=== PATIENT | female | born 1935 | race Caucasian/White ===

== ENCOUNTER 2017-05-04 12:07 | Emergency (ER) | payer MEDICARE, BC ==
[2017-05-04 12:37] VITALS: BP 150/27
--- NOTE | 2017-05-04 14:38 | UC ---
Respiratory Complaint HPI - HPI Summary HPI Summary: ONE WEEK AGO SORE THROAT AND COUGH. ST RESOLVED, COUGH NONPRODUCTIVE CONTINUES - History of Current Complaint Chief Complaint: UCRespiratory Stated Complaint: COUGH Time Seen by Provider: 05/04/17 12:56 Hx Obtained From: Patient Onset/Duration: Gradual Onset, Lasting Weeks, Still Present Timing: Intermittent Episodes Severity Initially: Moderate Severity Currently: Moderate Pain Intensity: 0 Pain Scale Used: 0-10 Numeric Character: Cough: Nonproductive Associated Signs And Symptoms: Positive: Negative - Risk Factors Pulmonary Embolism Risk Factors: Negative Cardiac Risk Factors: Negative Pseudomonas Risk Factors: Negative Tuberculosis Risk Factors: Negative - Allergies/Home Medications Allergies/Adverse Reactions: Allergies Allergy/AdvReac Type Severity Reaction Status Date / Time Penicillins [PCN] Allergy Anaphylatic Verified 05/04/17 12:34 Shock Home Medications: Home Medications Amlodipine Besylate-Valsartan [Amlodipine Besylate/Valsa 10-320 mg-] 1 tab PO DAILY 05/04/17 [History Confirmed 05/04/17] Metoprolol Succinate XL TAB* [Toprol XL TAB*] 50 mg PO BID 05/04/17 [History Confirmed 05/04/17] Rosuvastatin Calcium [Crestor] 20 mg PO DAILY 05/04/17 [History Confirmed ] PMH/Surg Hx/FS Hx/Imm Hx Previously Healthy: Yes - Surgical History Surgical History: Yes Surgery Procedure, Year, and Place: Bilateral Cataract Extrations - Family History Known Family History: Negative: Respiratory Disease - Social History Occupation: Employed Full-time Lives: With Family Alcohol Use: None Substance Use Type: None Smoking Status (MU): Never Smoked Tobacco Review of Systems Constitutional: Negative Skin: Negative Eyes: Negative ENT: Nasal Discharge, Sinus Congestion Respiratory: Cough Cardiovascular: Negative Gastrointestinal: Negative Genitourinary: Negative Motor: Negative Neurovascular: Negative Musculoskeletal: Negative Neurological: Negative Psychological: Negative All Other Systems Reviewed And Are Negative: Yes Physical Exam Triage Information Reviewed: Yes Appearance: Well-Appearing, No Pain Distress, Well-Nourished Vital Signs: Initial Vital Signs Temp 98.2 F 05/04/17 12:27 Pulse 83 05/04/17 12:27 Resp 18 05/04/17 12:27 BP 150/27 05/04/17 12:27 Pulse Ox 99 05/04/17 12:27 Vital Signs Reviewed: Yes Eye Exam: Normal ENT: Positive: Hearing grossly normal, Pharynx normal, Nasal congestion, TM dull Dental Exam: Normal Neck exam: Normal Neck: Positive: Supple, Nontender Respiratory Exam: Normal Respiratory: Positive: Chest non-tender, Lungs clear, Normal breath sounds Cardiovascular Exam: Normal Cardiovascular: Positive: RRR, No Murmur, Pulses Normal Abdominal Exam: Normal Musculoskeletal Exam: Normal Musculoskeletal: Positive: Strength Intact, ROM Intact Neurological Exam: Normal Psychological Exam: Normal Skin Exam: Normal UC Diagnostic Evaluation - Laboratory O2 Sat by Pulse Oximetry: 99 Respiratory Course/Dx - Differential Dx/Diagnosis Differential Diagnosis/HQI/PQRI: Bronchitis, Sinusitis Provider Diagnoses: SINUSITIS; BRONCHITIS Discharge - Discharge Plan Condition: Stable Disposition: HOME Prescriptions: Azithromycin TAB* [Zithromax TAB (Z-ESVIN) 250 mg #6 tabs] 250 mg PO DAILY #6 tab Benzonatate CAP* [Tessalon 100 MG CAP*] 100 mg PO TID PRN #15 cap PRN Reason: Cough Patient Education Materials: Acute Bronchitis (ED) Referrals: Almita Crane [Primary Care Provider] -
== END 2017-05-04 13:16 | disposition home or self-care (01) ==
LOC: UCCORT 12:07
DX: J32.9 Chronic sinusitis, unspecified (principal); J40 Bronchitis, not specified as acute or chronic; Z88.0 Allergy status to penicillin
CPT/HCPCS: 99212; G0463

== ENCOUNTER 2018-12-23 18:30 | Emergency (ER) | payer MEDICARE, BC ==
[2018-12-23 19:29] VITALS: BP 167/71
--- NOTE | 2018-12-23 19:34 | UC ---
General HPI - HPI Summary HPI Summary: ON 12/19/18, PT MISSED HER TOP STEP AND FELL INTO HER GARAGE. SHE HIT HER R FOREHEAD AND R SIDE. SHE HAD NO LOC, NECK OR BACK PAIN. HER FAMILY ASSISTED HER TO HER FEET. A SHORT TIME LATER, SHE NOTED HER R UPPER THIGH AND R SIDE OF CHEST WAS SORE. THE THIGH IS BETTER BUT SHE HAS ONGOING PAIN IN HER R SIDE OF CHEST WITH MOVEMENT, STANDING AND PUSHING OFF WITH HER ARMS. SHE IS TAKING TYLENOL WITHOUT RELIEF. SHE HAS NO COUGH OR SOB. SHE HAS NO HEADACHE OR ACUTE CONFUSION. SHE HAS NO NUMBNESS OR WEAKNESS TO HER ARMS OR LEGS. SHE HAS LEFT OVER TYLENOL # 3 WHICH SHE HAS TAKEN AND TOLERATED IN THE PAST. 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 Associated Signs & Symptoms: Negative: Hemoptysis, SOB - Allergy/Home Medications Allergies/Adverse Reactions: Allergies Allergy/AdvReac Type Severity Reaction Status Date / Time Penicillins Allergy Anaphylatic Verified 12/23/18 19:17 Shock Home Medications: Home Medications Acetaminophen [Extra Strength Non-Aspirin] 1,000 mg PO Q6H PRN 12/23/18 [ History Confirmed 12/23/18] Donepezil TAB* [Aricept 5 MG TAB*] 5 mg PO DAILY 12/23/18 [History Confirmed 06/04] Triamcinolone 0.1% Oint (NF) [Triamcinolone Acetonide] 1 udc TOPICAL DAILY 12/23 [History Confirmed 12/23/18] hydrOXYzine HCL TAB* [Atarax 25 MG TAB*] 25 mg PO BEDTIME PRN 12/23/18 [History Confirmed 12/23/18] PMH/Surg Hx/FS Hx/Imm Hx - Additional Past Medical History Additional PMH: DEMENTIA(very mild), MENIERE'S CAUSING UNSTEADY GAIT. Endocrine History: Dyslipidemia Cardiovascular History: Hypertension - Surgical History Surgical History: Yes Surgery Procedure, Year, and Place: Bilateral Cataract Extrations - Family History Known Family History: Negative: Respiratory Disease - Social History Alcohol Use: None Substance Use Type: None Smoking Status (MU): Never Smoked Tobacco Review of Systems All Other Systems Reviewed And Are Negative: Yes Constitutional: Negative: Fever Eyes: Negative: Blurred Vision, Diplopia Respiratory: Positive: Other - R CHEST WALL PAIN. Negative: Shortness Of Breath , Cough Cardiovascular: Negative: Chest Pain Gastrointestinal: Negative: Abdominal Pain Neurological: Negative: Headache, Weakness, Paresthesia, Numbness Physical Exam Triage Information Reviewed: Yes Appearance: Well-Appearing Vital Signs Reviewed: Yes Eyes: Positive: Conjunctiva Clear, Other: - EOMI ENT: Positive: Pharynx normal, TMs normal. Negative: Nasal congestion, Nasal drainage Neck: Positive: Supple, Nontender, No Lymphadenopathy, Other: - C-SPINE IS NON TENDER. Respiratory: Positive: Lungs clear, Normal breath sounds, No respiratory distress, Other: - R MIDAXILLARY CHEST WALL TENDERNESS BUT NO DEFORMITY OR BRUISING Cardiovascular: Positive: RRR, No Murmur Abdomen Description: Positive: Nontender, No Organomegaly, Soft. Negative: Distended, Guarding Bowel Sounds: Positive: Present Musculoskeletal: Positive: Other: - BACK, PELVIS, BUE'S AND BLE'S ARE WITHOUT DEFORMITY OR TENDERNESS. AND HAVE GROSS S/V/M FUNCTION. HEAD HAS A YELLOW BRUISE TO R FOREHEAD BUT NO TENDERNESS OR INSTABILITY. Neurological: Positive: Other: - A&OX3. CN GROSSLY INTACT. SLOW BUT STEADY GAIT. Psychological: Positive: Normal Response To Family, Age Appropriate Behavior Skin Exam: Normal Diagnostics - Radiology No standard instances Radiology Interpretation Completed By: ED Physician - CXR=NO FX, PTX. ATX ON L. Course/Dx - Differential Dx - Multi-Symptom Differential Diagnoses: Other - NO CONCERN FOR ACUTE INTRACRANIAL PATHOLOGY. NO FX OR PTX ON CXR. ATX ON L. WILL WRITE FOR A WALKER GIVEN CHRONIC GAIT DISTURBANCE ISSUES - Diagnoses Provider Diagnosis: Contusion of head, Chest wall injury, Gait disturbance Discharge - Sign-Out/Discharge Documenting (check all that apply): Patient Departure All imaging exams completed and their final reports reviewed: No - Discharge Plan Condition: Stable Disposition: HOME Patient Education Materials: Head Injury (ED), Chest Wall Pain (ED) Referrals: Nancy Maravilla PA [Primary Care Provider] - 3 Days Additional Instructions: YOU MAY TAKE YOUR LEFT OVER TYLENOL WITH CODEINE DIRECTED FOR PAIN BUT NOT UNTIL THE AM. GO TO THE ER FOR ANY CHANGES OR WORSENING. - Billing Disposition and Condition Condition: STABLE Disposition: Home - Attestation Statements Provider Attestation: Per institutional requirements, I have reviewed the chart, however, I was not consulted specifically or made aware of this patient by the midlevel provider. I did not personally evaluate, interact with , or disposition this patient.
[2018-12-23] MEDS ORDERED: Acetaminoph/Cod 120/12 mg LIQ* 5 ML UDC PO ONE (19:49)
--- NOTE | 2018-12-24 08:15 | UC ---
- EKG/XRAY/CT XRAY: chest - Negative for traumatic thoracic injury Course/Dx - Diagnoses Provider Diagnoses: Contusion of head, Chest wall injury, Gait disturbance Discharge - Sign-Out/Discharge Documenting (check all that apply): Post-Discharge Follow Up All imaging exams completed and their final reports reviewed: Yes - Discharge Plan Condition: Stable Disposition: HOME Patient Education Materials: Head Injury (ED), Chest Wall Pain (ED) Referrals: Nancy Maravilla PA [Primary Care Provider] - 3 Days Additional Instructions: YOU MAY TAKE YOUR LEFT OVER TYLENOL WITH CODEINE DIRECTED FOR PAIN BUT NOT UNTIL THE AM. GO TO THE ER FOR ANY CHANGES OR WORSENING. - Billing Disposition and Condition Condition: STABLE Disposition: Home
== END 2018-12-23 20:42 | disposition home or self-care (01) ==
LOC: UCCORT 18:30
DX: S00.83XA Contusion of other part of head, initial encounter (principal); S29.9XXA Unspecified injury of thorax, initial encounter; W19.XXXA Unspecified fall, initial encounter; Y92.59 Other trade areas as the place of occurrence of the external cause; F03.90 Unspecified dementia, unspecified severity, without behavioral disturbance, psychotic disturbance, mood disturbance, and anxiety; H81.09 Meniere's disease, unspecified ear; R26.81 Unsteadiness on feet; E78.5 Hyperlipidemia, unspecified; I10 Essential (primary) hypertension; Z88.0 Allergy status to penicillin
CPT/HCPCS: 71046; 99213; A9270-GY; G0463